=== PATIENT | male | born 1970 | race Caucasian/White ===

== ENCOUNTER 2019-02-06 15:24 | Emergency (ER) | payer OTHER ==
[~2019-02-06] VITALS: Ht 175.3 cm; Wt 98.9 kg
--- NOTE | 2019-02-06 16:04 | NUR ---
PINA GAGE AT BEDSIDE FOR MSE.
[2019-02-06] MEDS ORDERED: KETOROLAC TROMETHAMINE 15 MG INJ IV ONE (16:15)
[2019-02-06] MEDS ORDERED: METOCLOPRAMIDE HCL 10 MG/2 ML VIAL IV ONE (16:15)
[2019-02-06] MEDS ORDERED: IV NORMAL SALINE 1000 ML BAG IV ONE (16:15)
[2019-02-06] MEDS ORDERED: KETOROLAC TROMETHAMINE 15 MG INJ ONE ×2 (16:17→16:22)
[2019-02-06] MEDS ORDERED: METOCLOPRAMIDE HCL 10 MG/2 ML VIAL ONE ×2 (16:17→16:22)
[2019-02-06 16:31] LABS: BASOPHILS # (AUTO) 0.1 K/uL (0.0-8.0); BASOPHILS % (AUTO) 0.7 % (0.0-2.0); EOSINOPHILS # (AUTO) 0.1 K/uL (0.0-0.7); EOSINOPHILS % (AUTO) 0.8 % (0.0-7.0); HEMATOCRIT 41.4 % (36.7-47.1); HEMOGLOBIN 14.1 g/dL (12.5-16.3); LYMPHOCYTES # (AUTO) 1.4 K/uL (20.0-40.0); LYMPHOCYTES % (AUTO) 11.4 % (20.5-51.5); MEAN CORPUSCULAR HGB CONC 34 g/dL (32.5-36.3); MEAN CORPUSCULAR VOLUME 88.3 fL (73.0-96.2); MONOCYTES # (AUTO) 0.8 K/uL (2.0-10.0); MONOCYTES % (AUTO) 6.3 % (0.0-11.0); NEUTROPHILS # (AUTO) 9.8 K/uL (1.8-8.9); NEUTROPHILS % (AUTO) 80.8 % (38.5-71.5); PLATELET COUNT (AUTO) 272 K/uL (152-348); RED BLOOD CELL COUNT(AUTO) 4.69 MIL/uL (4.06-5.63); WHITE BLOOD COUNT (AUTO) 12.2 K/uL (3.6-10.2)
[2019-02-06 16:37] LABS: POTASSIUM 3.7 mmol/L (3.5-5.1)
[2019-02-06 16:43] LABS: BILIRUBIN,DIRECT 0.2 mg/dL (0.0-0.2); BILIRUBIN,TOTAL 0.5 mg/dL (0.2-1.0); TOTAL PROTEIN, SERUM 7.3 g/dL (6.4-8.2)
[2019-02-06 16:54] LABS: *BILIRUBIN,URIN NEGATIVE (NEGATIVE); *BLOOD, URINE NEGATIVE (NEGATIVE); *KETONES,URINE NEGATIVE (NEGATIVE); *UROBILINOGEN,URINE 0.2 E.U./dl (NORMAL); LEUKOCYTE ESTERASE ,URINE NEGATIVE (NEGATIVE); NITRITE, URINE NEGATIVE (NEGATIVE); PH,URINE 8.5 (5.0-8.0); UGLUCOSE NEGATIVE (NEGATIVE)
[2019-02-06 17:01] LABS: *CLARITY,URINE SLIGHTLY CLOUDY (CLEAR); *COLOR,URINE YELLOW (YELLOW)
[2019-02-06 17:02] LABS: MUCUS,URINE MODERATE /LPF (0-FEW); URINE AMORPHOUS PHOSPHATES MANY /HPF; WBC,URINE 0-3 /HPF (0-3)
--- NOTE | 2019-02-06 17:27 | NUR ---
PT TAKEN TO RADIOLOGY TO CT SCAN.
[2019-02-06] MEDS ORDERED: SWABABLE VALVE TRANSFER SET EA MC ONE (17:30)
[2019-02-06] MEDS ORDERED: IV NORMAL SALINE 250 ML IV ONE (17:30)
[2019-02-06] MEDS ORDERED: NORMAL SALINE FLUSH 10 ML DISP.SYRIN ONE (17:30)
[2019-02-06] MEDS ORDERED: IOHEXOL 300MG/ML 100 ML INFUS..BTL ONE (17:30)
--- NOTE | 2019-02-06 17:54 | NUR ---
PT BACK IN ER FROM RADIOLOGY.
[2019-02-06] MEDS ORDERED: AMOX500T2 PO (18:16)
--- NOTE | 2019-02-06 18:20 | NUR ---
PT INFORMED BY ER MD OF ACUTE APPENDICITIS. PT VERBALIZES DESIRE TO LEAVE AMA.
--- NOTE | 2019-02-06 18:25 | NUR ---
Patient does not wish to proceed with medical care recommended by Dr. MADDEN. Patient given information related to possible complications, up to and including , which could occur as a result of leaving the hospital at this time. Patient verbalizes understanding of risks involved due to leaving against medical advice. Patient has signed AMA form. 20G IV ACCESS IN LAC REMOVED PRIOR TO D/C - INNER CANNULA INTACT.
[2019-02-07] MEDS ORDERED: AMLO5TAB9 PO (01:54)
[2019-02-07] MEDS ORDERED: IBUP-1955 PO (01:54)
== END 2019-02-06 18:27 | disposition left against medical advice (07) ==
LOC: ER 15:25
DX: K35.80 Unspecified acute appendicitis (principal); Z79.1 Long term (current) use of non-steroidal anti-inflammatories (NSAID); Z79.2 Long term (current) use of antibiotics; Z79.899 Other long term (current) drug therapy
CPT/HCPCS: 36415; 71045; 74177; 80048; 80076; 81001; 83690; 84484; 85025; 85730; 93005; 96374; 96375; 99284; J1885 ×2; Q9967; 70030-TC; A4663; J2765; J3490; J7050

== ENCOUNTER 2019-02-07 01:10 | Inpatient (IN) | payer OTHER ==
[~2019-02-07] VITALS: Ht 175.3 cm; Wt 101.2 kg
[~2019-02-07 01:10] MED LIST: AMOX500T2 PO
[2019-02-07] MEDS ORDERED: IV D5W-0.45% NS +20 KCL 1,000 ML IV ONE ×2 (01:22→01:32)
[2019-02-07] MEDS ORDERED: ONDANSETRON IV *ER 4 MG/2 ML VIAL IV ONE (01:30)
[2019-02-07] MEDS ORDERED: HYDROMORPHONE 1 MG/1 ML DISP.SYRIN IV ONE (01:30)
[2019-02-07] MEDS ORDERED: PIPERACILLIN SODIUM/TAZOBACTAM 3.375 G in IV DEXTROSE 5% 50 ML IV ONE (01:30)
[2019-02-07] MEDS ORDERED: PIPERACILLIN/TAZOBACTAM/D5W 50 ML IV ONE (01:32)
[2019-02-07] MEDS ORDERED: ONDANSETRON 4 MG/2 ML VIAL ONE (01:32)
[2019-02-07] MEDS ORDERED: HYDROMORPHONE 1 MG/1 ML DISP.SYRIN ONE (01:32)
[2019-02-07] MEDS ORDERED: AMLO5TAB9 PO (01:54)
[2019-02-07] MEDS ORDERED: IBUP-1955 PO (01:54)
[2019-02-07 02:40] VITALS: BP 128/81
[2019-02-07] MEDS ORDERED: ZOLPIDEM 5 MG TABLET PO PRN (05:00)
[2019-02-07] MEDS ORDERED: Z GUARD REMEDY PASTE 57 GM TUBE TOP PRN (05:00)
[2019-02-07] MEDS ORDERED: MAGNESIUM HYDROXIDE 30 ML LIQUID UDC PO PRN (05:00)
[2019-02-07] MEDS ORDERED: ONDANSETRON 4 MG/2 ML VIAL IV PRN (05:00)
[2019-02-07] MEDS ORDERED: ACETAMINOPHEN 325 MG TABLET PO PRN (05:00)
[2019-02-07] MEDS: IV NS 1000 ML 1,000 ML IV PRN (05:24)
[2019-02-07] MEDS ORDERED: PIPERACILLIN/TAZOBACTAM/D5W 3.375 G in PREMIXED 1 EACH IV SCH (06:00)
[2019-02-07 06:35] LABS: BASOPHILS % (AUTO) 0.3 % (0.0-2.0); EOSINOPHILS # (AUTO) 0.2 K/uL (0.0-0.7); EOSINOPHILS % (AUTO) 1.5 % (0.0-7.0); HEMATOCRIT 38.4 % (36.7-47.1); HEMOGLOBIN 13.2 g/dL (12.5-16.3); LYMPHOCYTES # (AUTO) 2.5 K/uL (20.0-40.0); LYMPHOCYTES % (AUTO) 21.5 % (20.5-51.5); MEAN CORPUSCULAR HEMOGLOBIN 30.5 uug (23.8-33.4); MEAN CORPUSCULAR HGB CONC 35 g/dL (32.5-36.3); MEAN CORPUSCULAR VOLUME 88.5 fL (73.0-96.2); MONOCYTES # (AUTO) 0.9 K/uL (2.0-10.0); MONOCYTES % (AUTO) 7.5 % (0.0-11.0); NEUTROPHILS % (AUTO) 69.2 % (38.5-71.5); PLATELET COUNT (AUTO) 252 K/uL (152-348); RED BLOOD CELL COUNT(AUTO) 4.34 MIL/uL (4.06-5.63); WHITE BLOOD COUNT (AUTO) 11.6 K/uL (3.6-10.2)
[2019-02-07 07:00] LABS: CREATININE 0.9 mg/dL (0.6-1.3); MAGNESIUM 1.9 mg/dL (1.8-2.4); PHOSPHOROUS 4.5 mg/dL (2.5-4.9)
[2019-02-07] MEDS: MORPHINE SULFATE 2 MG/1 ML DISP.SYRIN IV PRN ×2 (08:32→17:09)
[2019-02-07] MEDS: PIPERACILLIN/TAZOBACTAM/D5W 3.375 G in PREMIXED 1 EACH IV SCH ×2 (09:43→17:12)
[2019-02-07 11:25] VITALS: BP 117/66
[2019-02-07] MEDS ORDERED: BUPIVACAINE/EPI PF 0.25% 30 ML VIAL ONE (13:13)
[2019-02-07] MEDS ORDERED: DEXAMETHASONE SOD PHOSPHATE 4 MG INJ IV ONE (16:39)
[2019-02-07] MEDS ORDERED: KETOROLAC TROMETHAMINE 30 MG INJ IM ONE (16:39)
[2019-02-07] MEDS ORDERED: PROPOFOL 200 MG/20 ML BOTTLE IV ONE (16:39)
[2019-02-07] MEDS ORDERED: ONDANSETRON 4 MG/2 ML VIAL IV ONE (16:39)
[2019-02-07] MEDS ORDERED: IV NORMAL SALINE 1000 ML BAG IV ONE (16:39)
[2019-02-07] MEDS ORDERED: SEVOFLURANE 250 ML BOTTLE IH ONE (16:39)
[2019-02-07] MEDS ORDERED: LIDOCAINE HCL 2% 20 ML VIAL MC ONE (16:39)
[2019-02-07 17:06] VITALS: BP 108/73
[2019-02-07 20:08] VITALS: BP 137/70
[2019-02-08] MEDS: MORPHINE SULFATE 2 MG/1 ML DISP.SYRIN IV PRN (00:11)
[2019-02-08] MEDS: IV NS 1000 ML 1,000 ML IV PRN (02:30)
[2019-02-08] MEDS: PIPERACILLIN/TAZOBACTAM/D5W 3.375 G in PREMIXED 1 EACH IV SCH ×2 (02:51→09:32)
[2019-02-08 05:20] VITALS: BP 122/74
[2019-02-08 06:20] LABS: BASOPHILS % (AUTO) 0.1 % (0.0-2.0); HEMATOCRIT 41.3 % (36.7-47.1); HEMOGLOBIN 14.1 g/dL (12.5-16.3); LYMPHOCYTES # (AUTO) 1.4 K/uL (20.0-40.0); LYMPHOCYTES % (AUTO) 9.9 % (20.5-51.5); MEAN CORPUSCULAR HEMOGLOBIN 30.3 uug (23.8-33.4); MEAN CORPUSCULAR HGB CONC 34 g/dL (32.5-36.3); MONOCYTES # (AUTO) 0.6 K/uL (2.0-10.0); MONOCYTES % (AUTO) 4.1 % (0.0-11.0); NEUTROPHILS # (AUTO) 12.6 K/uL (1.8-8.9); NEUTROPHILS % (AUTO) 85.9 % (38.5-71.5); PLATELET COUNT (AUTO) 292 K/uL (152-348); RED BLOOD CELL COUNT(AUTO) 4.64 MIL/uL (4.06-5.63); WHITE BLOOD COUNT (AUTO) 14.7 K/uL (3.6-10.2)
[2019-02-08 06:29] LABS: POTASSIUM 4.1 mmol/L (3.5-5.1)
[2019-02-08] MEDS ORDERED: CALCIUM CARBONATE 500 MG TAB.CHEW PO SCH (09:00)
[2019-02-08] MEDS ORDERED: NICOTINE 14 MG/24HR PATCH TD SCH (09:00)
[2019-02-08] MEDS: HYDROCODONE/APAP 5-325MG TABLET PO PRN ×2 (09:35→15:05)
[2019-02-08 11:04] VITALS: BP 121/68
[2019-02-08 15:20] VITALS: BP 139/64
== END 2019-02-08 16:40 | disposition home or self-care (01) | DRG 234 ==
LOC: ER 01:12 → MEDSURG3 02:22
PROVIDERS: ADMIT Nurse Practitioner Acute Care; ATTEND Internal Medicine
PROC: 0DTJ4ZZ Resection of Appendix, Percutaneous Endoscopic Approach (ICD-10-PCS; principal; 2019-02-07)
DX: K35.890 Other acute appendicitis without perforation or gangrene (principal); E11.9 Type 2 diabetes mellitus without complications; E66.9 Obesity, unspecified; Z68.32 Body mass index [BMI] 32.0-32.9, adult; F19.10 Other psychoactive substance abuse, uncomplicated; I10 Essential (primary) hypertension
CPT/HCPCS: 36415; 83735; 84100; 85025; 85730; A4663; G0378; J1100; J1170; J1885; J2270; J2405; J2543; J3490; J7030